=== PATIENT | male | born 1950 | race African-American/Black ===

== ENCOUNTER 2022-12-04 08:04 | Outpatient (AMB) | payer OTHER, SELFPAY ==
[2022-12-04 08:15] VITALS: BP 117/62; PULSE 73; BMI 30.1
--- NOTE | 2022-12-04 08:15 | MHC.OFFVIS ---
Intake Vital Signs 12/04/22 08:15 Height 5 ft 9 in Weight 204 lb 2.369 oz BMI 30.1 BP 117/62 Blood Pressure Location Rt brachial Position Sitting Pulse 73 Intake Visit Reasons: Colonoscopy Screening Intake Note: Patient present to in office visit today as a new patient for colonoscopy screening. CC: Patient reports occasional heartburn depending on what he eats. Denies other GI symptoms today. Allergies No Known Allergies Allergy (Verified 12/04/22 08:21) HPI Colonoscopy Screening HPI Details 72-year-old male here for preprocedural meeting to discuss screening colonoscopy. He is referred by Turner Freitas MD. PMX Asthma Hypertension High cholesterol Polyneuropathy (? not correct dsx) Erectile dysfunction Nephrolithiasis * SURGICAL HISTORY Circumcision Correction of phimosis Lithotripsy * ALLERGIES: NKDA * RSVP Law LABS: none TODAY'S VISIT He has had 3 prior colonoscopies and he has a hx of TA's, one was at [facility] and 2 out of [facility]. He denies any bowel or upper GI problems. There are no prior problems with anesthesia or sedation. His asthma is well controlled and he denies any cardiac problems. NO ID problems. He has a hx of TA's, 3 at first scope and 7 at second scope, but no known hx of CRC. [facility] Medical History History of phimosis of penis Nephrolithiasis Surgical History H/O colonoscopy H/O lithotripsy H/O circumcision Social History Alcohol intake: never Patient Tobacco Use Status: Former Tobacco user Quit Date: 1977 Use of substances other than those prescribed or required for medical reasons: No Review of Systems Const Denies fatigue, Denies fever(s), Denies night sweats, Denies poor appetite and Denies weight loss ENT Reports Normal hearing present, Denies dysphagia, Denies odynophagia, Denies throat swelling and Denies tongue swelling Card Reports no additional complaints Resp Reports no additional complaints GI Denies abdominal pain, Denies melena, Denies bloating, Denies hematochezia, Denies constipation, Denies GI cramping, Denies dysphagia, Denies excessive flatus, Denies early satiety, Denies heartburn, Denies diarrhea, Denies nausea, Denies odynophagia, Denies vomiting and Denies hematemesis Skin/Breast Denies pruritus, Denies lesions, Denies rash and Denies jaundice Neuro Reports Normal hearing present and Denies Abnormal speech present Endo Denies fatigue Aller/Immun Denies throat swelling and Denies tongue swelling Physical Exam Vital Signs: Last Vital Signs Pulse 73 12/04/22 08:15 BP 117/62 12/04/22 08:15 BMI result Body Mass Index 30.1 Const General: cooperative, no acute distress, well developed and well groomed Nutritional Appearance: well nourished and obese centrally obese Orientation/consciousness: oriented to person, oriented to place and oriented to time Limitations: No language barrier HEENT Head: Yes normocephalic and Yes atraumatic Eyes General: appearance normal, both eyes and all related structures Pupils: Equal, round and reactive pupils present Neck Neck: Yes normal visual inspection and Yes no lymphadenopathy Thyroid: Thyroid normal Resp Effort & Inspection: normal respiratory effort and able to speak in complete sentences Auscultation: clear to auscultation bilaterally and wheezes expiratory wheezes, inspiratory wheezes and throughout Cardio Rate: regular rate Rhythm: regular rhythm Heart sounds: Normal, physiologic split S2 sound present Peripheral pulses: radial pulses present and posterior tibial pulses present GI Inspection: No distended, No Abdominal panniculus present and Yes obesity Palpation (GI): Soft to palpation, nontender, no guarding, not rigid and No hepatosplenomegaly present Percussion: Yes normal to percussion Auscultation: normal bowel sounds Rectal Exam - Male: Yes deferred Skin General skin exam: no rashes or lesions noted, turgor normal, skin not dry, no jaundice, No spider nevi and no striae Rashes: no rashes Nails: normal Neuro General: oriented to person, oriented to place and oriented to time Cranial nerves: Yes Equal, round and reactive pupils present and Yes Normal hearing present Speech: No Abnormal speech present Extrem General: Yes normal to inspection, No clubbing, No cyanosis and No edema Psych Appearance: grossly normal and well kempt Mental Status: mental status grossly normal Speech and movement: Normal speech and movement present Affect: normal affect Attitude: cooperative Thought process: Normal thought process present and not confabulating Thought content: Normal thought content present Insight: Limited insight present (Psych) Judgement: Limited judgement present (Psych) Assessment & Plan Assessment & Plan (1) Pre-op examination: Code(s): Z01.818 - Encounter for other preprocedural examination Plan: He has had 3 prior colonoscopies and he has a hx of TA's, one was at [facility] and 2 out of [facility]. He denies any bowel or upper GI problems. There are no prior problems with anesthesia or sedation. His asthma is well controlled and he denies any cardiac problems. NO ID problems. He has a hx of TA's, 3 at first scope and 7 at second scope, but no known hx of CRC. (2) Tubular adenoma of colon: Code(s): D12.6 - Benign neoplasm of colon, unspecified (3) Asthma: Code(s): J45.909 - Unspecified asthma, uncomplicated Orders: Orders Colonoscopy - GI Use Only 12/04/22 Comprehensive Met. Panel 12/04/22 Z01.818 - Encounter for other preprocedural examination, D12.6 - Benign neoplasm of colon, unspecified Complete Blood Count Auto Diff 12/04/22 Z01.818 - Encounter for other preprocedural examination, D12.6 - Benign neoplasm of colon, unspecified Medications: New peg 3350-electrolytes 236-22.74-6.74 -5.86 gram (Golytely) until fecal effluent is clear; do not exceed a total volume of 2,000 mL 240 mL PO Q10M 4,000 mL 0RF 1 day Z12.11 - Encounter for screening for malignant neoplasm of colon bisacodyl (Dulcolax (bisacodyl)) 10 mg (2 x 5 mg) PO BEDTIME 4 tabs 0RF 2 days albuterol sulfate 0.63 mg (3 mL) inhalation QID PRN 90 mL 3RF shortness of breath or wheezing J45.909 - Unspecified asthma, uncomplicated Coding Level of Care Code New Pt Level 3 (80960) Diagnoses Pre-op examination Z.81 Tubular adenoma of colon D12.6 Asthma J45.903
== END 2022-12-04 09:36 | disposition home or self-care (01) ==
PROVIDERS: PCP Hospitalist; Visit Provider Nurse Practitioner
DX: Z01.818 Encounter for other preprocedural examination (principal); Z12.11 Encounter for screening for malignant neoplasm of colon; Z86.010 Personal history of colon polyps
CPT/HCPCS: 99203

== ENCOUNTER 2022-12-04 08:04 | Outpatient (REF) | payer OTHER, SELFPAY ==
[2022-12-04 09:20] LABS: MANUAL DIFF FLAG NO
[2022-12-04 10:15] LABS: Basophils Absolute Auto 0.1 X10*3/uL (0.0-0.2); Basophils Percent Auto 0.6 % (0-2); Eosinophils Absolute Auto 0.4 X10*3/uL (0.0-0.4); Eosinophils Percent Auto 4.1 % (0-4); Hematocrit 45.4 % (42.0-52.0); Hemoglobin 14.3 g/dl (14.0-18.0); Imm Gran Abs Auto 0.03 X10*3/uL (0.00-0.03); Imm Gran Pct Auto 0.3 % (0.0-0.4); Lymphocytes Absolute Auto 2.2 X10*3/uL (1.2-4.9); Lymphocytes Percent Auto 24.3 % (20-40); Mean Corpuscular HGB Conc 31.5 g/dl (31.0-36.0); Mean Corpuscular Hemoglobin 26.7 pg (27.0-33.0); Mean Corpuscular Volume 84.9 fL (80.0-98.0); Mean Platelet Volume 11.3 fL (9.4-12.4); Monocytes Absolute Auto 0.5 X10*3/uL (0.1-1.2); Monocytes Percent Auto 5.8 % (2-11); Neutrophils Absolute Auto 5.9 x10*3/uL (2.0-8.3); Neutrophils Percent Auto 64.9 % (45-73); Platelet Count 318 X10*3/uL (160-400); Red Blood Count 5.35 X10*6/uL (4.60-5.80); Red Cell Distribution Width 15.2 % (11.0-16.0); White Blood Count 9.1 X10*3/uL (4.8-10.8)
[2022-12-04 10:55] LABS: Alanine Aminotransferase 22 U/L (0-40); Albumin Level 4.2 g/dL (3.5-5.0); Alkaline Phosphatase 68 U/L (39-117); Anion Gap 12 (12-20); Aspartate Amino Transferase 19 U/L (5-37); Bilirubin Total 0.5 mg/dL (0.0-1.0); Blood Urea Nitrogen 15 mg/dL (9-16); Calcium 9.7 mg/dL (8.4-10.2); Carbon Dioxide 29 mmol/L (22-29); Chloride 105 mmol/L (96-108); Estimated Glomerular Filt Rate > 60; Glucose Random 107 mg/dL (60-115); Sodium 142 mmol/L (135-145); Total Protein 6.9 g/dL (6.5-8.0)
== END 2022-12-04 08:05 | disposition home or self-care (01) ==
LOC: HO.LAB 08:04
PROVIDERS: PCP Hospitalist; Visit Provider Nurse Practitioner
DX: Z01.818 Encounter for other preprocedural examination (principal); D12.6 Benign neoplasm of colon, unspecified; J45.909 Unspecified asthma, uncomplicated
CPT/HCPCS: 36415; 80053; 85025

== ENCOUNTER 2023-04-30 07:24 | Day surgery (SDC) | payer OTHER, SELFPAY ==
[2023-04-28 11:58] VITALS: BMI 30.1
--- NOTE | 2023-04-29 10:33 | P.CONAN_ITS ---
Documented by User: Francoise Mata NP 04/29/23 10:35 HPI - Anesthesia Eval Consult details Narrative: 72yo M for Colonoscopy [facility] Active Problems Active Problems: All Active Problems (Updated 12/04/22 @ 08:38 by JAMILA Krueger) Tubular adenoma of colon (Acute) Pre-op examination (Acute) Erectile dysfunction (Acute) Polyneuropathy (Acute) Impaired fasting glucose (Acute) High cholesterol (Acute) Hypertension (Acute) Asthma (Acute) Past Medical History Medical History History of phimosis of penis Nephrolithiasis Surgical History Surgical History H/O colonoscopy H/O lithotripsy H/O circumcision Social History Social History Alcohol intake: never Patient Tobacco Use Status: Former Tobacco user Quit Date: 1977 Advance Directives: No Advance Directives Information Provided: Yes Meds Allergies Allergy/AdvReac Type Severity Reaction Status Date / Time No Known Allergies Allergy Verified 12/04/22 08:21 Home Medications Medication Instructions Recorded Confirmed Last Taken Type albuterol sulfate 90 mcg/actuation 2 puff inhalation Q6H PRN 12/04/22 04/28/23 Unknown History aerosol inhaler Shortness Of Breath Or Wheezing amlodipine 10 mg tablet 10 mg PO DAILY 12/04/22 04/28/23 Unknown History atenolol 50 mg tablet 50 mg PO DAILY 12/04/22 04/28/23 Unknown History atorvastatin 20 mg tablet 20 mg PO QDAY 12/04/22 04/28/23 Unknown History gabapentin 300 mg capsule 300 mg PO DAILY 12/04/22 04/28/23 Unknown History losartan 50 mg tablet 75 mg PO DAILY 12/04/22 04/28/23 Unknown History sildenafil 100 mg tablet 100 mg PO DAILY PRN Erectile 12/04/22 04/28/23 Unknown History Dysfunction budesonide-formoterol HFA 160 2 puff inhalation BID 04/28/23 04/28/23 Unknown History mcg-4.5 mcg/actuation aerosol inhaler (Symbicort) Exam Height,Weight and Vital Signs: Height 5 ft 9 in Weight 92.533 kg Pertinent Lab Results Pertinent Lab Results: Laboratory Tests 12/04/22 09:16 WBC 9.1 Hgb 14.3 Hct 45.4 Plt Count 318 Sodium 142 Potassium 4.0 Chloride 105 Carbon Dioxide 29 BUN 15 Creatinine 1.06 Assessment and Plan Assessment Anesthesia Assessment: Chart Reviewed Documented by User: Audrey Kraft MD 04/30/23 09:09 [facility] Past Medical History Medical History History of phimosis of penis Nephrolithiasis Family History Family history of problems with anesthesia: No Surgical History Surgical History H/O colonoscopy H/O lithotripsy H/O circumcision History of Problems with Anesthesia: No Social History Social History Alcohol intake: never Patient Tobacco Use Status: Former Tobacco user Quit Date: 1977 Advance Directives: No Advance Directives Information Provided: Yes Meds Allergies Allergy/AdvReac Type Severity Reaction Status Date / Time No Known Allergies Allergy Verified 12/04/22 08:21 Home Medications Medication Instructions Recorded Confirmed Last Taken Type albuterol sulfate 90 mcg/actuation 2 puff inhalation Q6H PRN 12/04/22 04/28/23 Unknown History aerosol inhaler Shortness Of Breath Or Wheezing amlodipine 10 mg tablet 10 mg PO DAILY 12/04/22 04/28/23 Unknown History atenolol 50 mg tablet 50 mg PO DAILY 12/04/22 04/28/23 Unknown History atorvastatin 20 mg tablet 20 mg PO QDAY 12/04/22 04/28/23 Unknown History gabapentin 300 mg capsule 300 mg PO DAILY 12/04/22 04/28/23 Unknown History losartan 50 mg tablet 75 mg PO DAILY 12/04/22 04/28/23 Unknown History sildenafil 100 mg tablet 100 mg PO DAILY PRN Erectile 12/04/22 04/28/23 Unknown History Dysfunction budesonide-formoterol HFA 160 2 puff inhalation BID 04/28/23 04/28/23 Unknown History mcg-4.5 mcg/actuation aerosol inhaler (Symbicort) Exam Airway Mallampati Class: II (missing one tooth) TM Dist: >3cm Neck ROM: Full Heart: rrr Lungs: cta Assessment and Plan Assessment Anesthesia Assessment: Anesthesia Plan Discussed Final Anesthetic Review Family History of Problems with Anesthesia: No History of Problems with Anesthesia: No NPO: Yes ASA Class: III Final Preanesthetic Review: No Changes in Pt Med Stat, Meds/Allgs Chart Reviewed and Consent Obtained/Reviewed Patient Risk: Low Procedure Risk: Low Anesthetic Plan Anesthetic Plan: MAC: Disposition: Standard PACU
[2023-04-30] MEDS: Lactated Ringers 1,000 ML 100 ML IVCONT (08:59)
[2023-04-30 09:11] VITALS: BMI 30.3
[2023-04-30] MEDS: Albuterol Sulfate (0.083%) 2.5 MG/3 ML VIAL.NEB INHALE (09:12)
[2023-04-30 09:13] VITALS: PULSE 75; RESP 16
--- NOTE | 2023-04-30 09:14 | MHC.SHP ---
Pre-Procedural Eval Section A - 24 Hr Update-Section A only Date of Service: 04/30/23 Section B - Complete if H&P > 30 days Chief Complaint: Benign neoplasm of colon, unspecified Relevant Family History (Specify if Yes): No Relevant Social History: None Present Medications: see Short Stay Collaborative assessment Medical History: Significant History (History of phimosis of penis Nephrolithiasis) History of Previous Operations: Relevant previous surgery/procedure and date(s) (H/O colonoscopy H/O lithotripsy H/O circumcision) Allergies: Allergies Allergy/AdvReac Type Severity Reaction Status Date / Time No Known Allergies Allergy Verified 12/04/22 08:21 Review of Systems Sugical H&P ROS: Negative: Constitution, Cardiovascular, Respiratory, Neurological, Psychiatric, Hem-Onc, Allergic/Immunologic, Gastrointestinal, Genitourinary, Musculoskeletal, Integumentary, Endocrine and Eyes/Ears/Nose/Throat Exam Surgical H&P Exam: Normal: HEENT, Normal: Heart, Normal: Lungs, Normal: Extremities, Normal: Abdomen, Normal: Skin and Normal: Neurological Plan Diagnosis/Plan: Unchanged I have reviewed the history and physical and performed a pertinent physical examination on my patient. No changes have occurred unless specified. Time Spent With Patient Time: Total time managing care of this patient today ____ minutes.
[2023-04-30 09:19] VITALS: BP 154/81; PULSE 71; RESP 18; TEMP 36.1; O2SAT 97
--- NOTE | 2023-04-30 10:08 | W.PM.OPN ---
Operative Note Operative Note Date of Service: 04/30/23 Narrative: Operative Information Procedure Description: Colonoscopy Indication: screening Anesthesia: MAC COLONOSCOPY Instrument: Olympus variable stiffness pediatric scope 190L Colonoscopy Monitoring: Vital signs and clinical assessment, continuous EKG monitoring, Pulse oximetry, Carbon Dioxide monitoring and blood pressure monitoring were done throughout the procedure. Colon withdrawal time was 12 minutes. Procedure: The patient was placed in the left lateral decubitis position and pre-procedure medications were administered. After a digital rectal examination of the ano-rectum, the video colonoscope was inserted into the rectum and advanced through the colon to the cecum/TI. The colonoscope was slowly withdrawn in a retrograde panoramic fashion and the colon mucosa was carefully examined including a retroflexed view of the rectum. Findings and interventions are described below. Procedure Difficulty: easy Findings: Terminal Ileum-normal Cecum:normal Ascending Colon: normal Transverse Colon -normal Descending Colon:normal Sigmoid Colon: 4-6 mm sessile polyp removed with cold snare Rectum: Retroflexion with medium sized internal hemorrhoids, grade I, 6-9 mm sessile polyp removed with cold snare, with one clip applied for hemostasis Anorectum - normal Colon preparation: [place] Bowel Preparation Scale Right colon; 1-2 Transverse colon: 2 Left colon; 2 (0 = Unprepared colon segment with mucosa not seen due to solid stool that cannot be cleared. 1 = Portion of mucosa of the colon segment seen, but other areas of the colon segment not well seen due to staining, residual stool and/or opaque liquid. 2 = Minor amount of residual staining, small fragments of stool and/or opaque liquid, but mucosa of colon segment seen well. 3 = Entire mucosa of colon segment seen well with no residual staining, small fragments of stool or opaque liquid) Impression and Post Procedure Diagnosis: polyps internal hemorrhoids Plan: High fiber diet leaflet Avoid straining at stool, epsom salts and sitz bath, anusol supps or cream Repeat Colonoscopy in 5 years due to right sided fair prep or earlier if clinically indicated Above findings were reviewed with the patient and relevant handouts were provided if indicated.
[2023-04-30 10:12] VITALS: BP 98/52; PULSE 77; RESP 16; TEMP 36.1; O2SAT 99
[2023-04-30 10:27] VITALS: BP 105/52; PULSE 88; RESP 16; O2SAT 97
[2023-04-30 10:42] VITALS: BP 153/76; PULSE 76; RESP 16; O2SAT 97
[2023-04-30 10:57] VITALS: BP 129/63; PULSE 71; RESP 16; TEMP 36.2; O2SAT 97
== END 2023-04-30 11:32 | disposition home or self-care (01) ==
PROVIDERS: PCP Hospitalist; Visit Provider Internal Medicine Gastroenterology
PROC: 0DJD8ZZ Inspection of Lower Intestinal Tract, Via Natural or Artificial Opening Endoscopic (ICD-10-PCS; CPT 45378; principal; 2023-04-30 10:00)
DX: Z12.11 Encounter for screening for malignant neoplasm of colon (principal); K63.5 Polyp of colon; K62.1 Rectal polyp; K64.0 First degree hemorrhoids; Z86.010 Personal history of colon polyps; E78.00 Pure hypercholesterolemia, unspecified; J45.909 Unspecified asthma, uncomplicated; Z79.02 Long term (current) use of antithrombotics/antiplatelets; Z79.899 Other long term (current) drug therapy
CPT/HCPCS: 45385; 88305; 94640; J2704

== ENCOUNTER → 2023-04-30 07:24 | Outpatient (BNV) | payer OTHER, SELFPAY | PROVIDERS: PCP Hospitalist; Visit Provider Internal Medicine Gastroenterology | DX: Z12.11 Encounter for screening for malignant neoplasm of colon (principal); D12.5 Benign neoplasm of sigmoid colon; D12.8 Benign neoplasm of rectum; K64.8 Other hemorrhoids | CPT/HCPCS: 45385 ==

== ENCOUNTER 2023-05-14 09:30 | Outpatient (AMB) | payer OTHER, SELFPAY ==
[2023-05-14 09:39] VITALS: BP 133/73; PULSE 74; BMI 30.6
--- NOTE | 2023-05-14 09:39 | A.OFFVIS_ITS ---
Intake Vital Signs 05/14/23 09:39 Height 5 ft 9 in Weight 207 lb 3.752 oz BMI 30.6 BP 133/73 Blood Pressure Location Rt brachial Position Sitting Pulse 74 Intake Visit Reasons: s/p colon Intake Note: Patient returns in follow up s/p colonoscopy on 04/30/23 CC: Patient reports doing well and denies having any GI concerns today. Allergies No Known Allergies Allergy (Verified 05/14/23 09:54) HPI s/p colon HPI Details Assessment & Plan (1) Pre-op examination: Code(s): Z01.818 - Encounter for other preprocedural examination Plan: He has had 3 prior colonoscopies and he has a hx of TA's, one was at [facility] and [address] [place] He denies any bowel or upper GI problems. There are no prior problems with anesthesia or sedation. His asthma is well controlled and he denies any cardiac problems. NO ID problems. He has a hx of TA's, 3 at first scope and 7 at second scope, but no known hx of CRC. (2) Tubular adenoma of colon: Code(s): D12.6 - Benign neoplasm of colon, unspecified (3) Asthma: Code(s): J45.909 - Unspecified asthma, uncomplicated Orders: Orders Colonoscopy - GI U se Only 12/04/22 Comprehensive Met. Panel 12/04/22 Z01.818 - Encounte r for other prepro cedural examinatio n, D12.6 - Benign neoplasm of colon, unspecified Complete Blood Cou nt Auto Diff 12/04/22 Z01.818 - Encounte r for other prepro cedural examinatio n, D12.6 - Benign neoplasm of colon, unspecified Medications: New peg 3350-electroly mala 236-22.74-6.74 -5.86 gram (Golyt nico) until feca l effluent is denzel r; do not exceed a total volume of 2 ,000 mL 240 mL PO Q10M 4,0 00 mL 0RF 1 day Z12.11 - Encounter for screening for malignant neoplas m of colon bisacodyl (Dulcola x (bisacodyl)) 10 mg (2 x 5 mg) P O BEDTIME 4 tabs 0 RF 2 days albuterol sulfate 0.63 mg (3 mL) inh alation QID PRN 90 mL 3RF shortness of breath or wheez ing J45.909 - Unspecif ied asthma, uncomp licated LABS: Laboratory Tests 12/04/22 09:16 WBC 9.1 Hgb 14.3 Hct 45.4 Plt Count 318 Estimated GFR > 60 Total Bilirubin 0.5 AST 19 ALT 22 Alkaline Phosphata se 68 COLONOSCOPY 04/30/23 Findings: Terminal Ileum-normal Cecum:normal Ascending Colon: normal Transverse Colon -normal Descending Colon:normal Sigmoid Colon: 4-6 mm sessile polyp removed with cold snare Rectum: Retroflexion with medium sized internal hemorrhoids, grade I, 6-9 mm sessile polyp removed with cold snare, with one clip applied for hemostasis Anorectum - normal Impression and Post Procedure Diagnosis: polyps internal hemorrhoids Plan: High fiber diet leaflet Avoid straining at stool, epsom salts and sitz bath, anusol supps or cream Repeat Colonoscopy in 5 years due to right sided fair prep or earlier if clinically indicated BIOPSY Received: 04/30/23 Diagnosis A. Colon, sigmoid, polypectomy: Hyperplastic mucosal polyp. B. Rectum, polypectomy: Hyperplastic mucosal polyp TODAY'S VISIT He was worried about the clip. He was reassured that this will pass without him having to do anything or any complications. The procedure was well tolerated. The results were explained and the patient is agreeable to the follow-up interval as stated. The bowel pattern has returned to normal. Education was provided to tell any 1st degree relatives about their findings to be sure that they are screened by age 45. Educated that they will be put on a recall list when it is time for their repeat scope but should they move out of state or away from the hospital they will need to remember along with their primary to repeat the procedure in a timely fashion to avoid any adverse complications. ??? D/ instructions told him to f/u with his PCP in 1 week....why??? Post script On 05/14/23 @ 13:38 Ingrid Gold Wrote To Ingrid Gold (2) That's kind of what I thought as I did not see anything in his pre, intra or post op situation that was unusual. On 05/14/23 @ 10:48 Shweta Clark Wrote To Ingrid Gold not sure -may have been an error by the d/c unit, from my point of view he did not need to see his PCP that soon On 05/14/23 @ 10:25 Ingrid Gold Wrote To Shweta Clark This patient is colonoscopy discharge instructions said he needed to follow-up with his primary care provider in 1 week. He wants to know why? I could not find any reason on any of the paperwork or procedure notes. Please advise. [facility] Medical History History of phimosis of penis Nephrolithiasis Surgical History H/O colonoscopy H/O lithotripsy H/O circumcision Social History Alcohol intake: never Patient Tobacco Use Status: Former Tobacco user Quit Date: 40 years Review of Systems Const Denies fatigue, Denies fever(s), Denies night sweats, Denies poor appetite and Denies weight loss ENT Reports Normal hearing present, Denies dental pain, Denies dysphagia, Denies hearing loss, Denies mouth pain, Denies odynophagia, Denies throat swelling, Denies tongue swelling and Reports other (Dentition adequate) Card Reports no additional complaints Resp Reports no additional complaints GI Details: Denies abdominal pain, Denies melena, Denies bloating, Denies hematochezia, Denies constipation, Denies GI cramping, Denies dysphagia, Denies excessive flatus, Denies early satiety, Denies heartburn, Denies diarrhea, Denies nausea, Denies odynophagia, Denies vomiting and Denies hematemesis Skin/Breast Denies pruritus, Denies lesions, Denies rash and Denies jaundice Neuro Reports Normal hearing present and Denies Abnormal speech present Endo Denies fatigue Aller/Immun Denies throat swelling and Denies tongue swelling Physical Exam Vital Signs: Last Vital Signs Pulse 74 05/14/23 09:39 BP 133/73 05/14/23 09:39 BMI result Body Mass Index 30.6 Const General: cooperative, no acute distress, well developed and well groomed Nutritional Appearance: well nourished and obese Orientation/consciousness: oriented to person, oriented to place and oriented to time Limitations: No language barrier HEENT Head: Yes normocephalic and Yes atraumatic Eyes General: appearance normal, both eyes and all related structures Pupils: Equal, round and reactive pupils present Neck Neck: Yes normal visual inspection and Yes no lymphadenopathy Thyroid: Thyroid normal Resp Effort & Inspection: normal respiratory effort and able to speak in complete sentences Auscultation: clear to auscultation bilaterally Cardio Rate: regular rate Rhythm: regular rhythm Heart sounds: Normal, physiologic split S2 sound present Peripheral pulses: radial pulses present and posterior tibial pulses present GI Inspection: No distended, No Abdominal panniculus present and Yes obesity Palpation (GI): Soft to palpation, nontender, no guarding, not rigid and No hepatosplenomegaly present Percussion: Yes normal to percussion Auscultation: normal bowel sounds Rectal Exam - Male: Yes deferred Skin General skin exam: no rashes or lesions noted, turgor normal, skin not dry, no jaundice, No spider nevi and no striae Rashes: no rashes Nails: normal Neuro General: oriented to person, oriented to place and oriented to time Cranial nerves: Yes Equal, round and reactive pupils present and Yes Normal hearing present Speech: No Abnormal speech present Extrem General: Yes normal to inspection, No clubbing, No cyanosis and No edema Psych Appearance: grossly normal and well kempt Mental Status: mental status grossly normal Speech and movement: Normal speech and movement present Affect: normal affect Attitude: cooperative Thought process: Normal thought process present and not confabulating Thought content: Normal thought content present Insight: Limited insight present (Psych) Judgement: Limited judgement present (Psych) Assessment & Plan Assessment & Plan (1) Tubular adenoma of colon: Comment: 2023 scope equals hyperplastic polyps repeat in 5 years On pass scope, Code(s): D12.6 - Benign neoplasm of colon, unspecified Plan He was worried about the clip. He was reassured that this will pass without him having to do anything or any complications. The procedure was well tolerated. The results were explained and the patient is agreeable to the follow-up interval as stated. The bowel pattern has returned to normal. Education was provided to tell any 1st degree relatives about their findings to be sure that they are screened by age 45. Educated that they will be put on a recall list when it is time for their repeat scope but should they move out of state or away from the hospital they will need to remember along with their primary to repeat the procedure in a timely fashion to avoid any adverse complications. ??? D/ instructions told him to f/u with his PCP in 1 week....why??? Post script On 05/14/23 @ 13:38 Ingrid Gold Wrote To Ingrid Gold (2) That's kind of what I thought as I did not see anything in his pre, intra or post op situation that was unusual. On 05/14/23 @ 10:48 Shweta Clark Wrote To Ingrid Gold not sure -may have been an error by the d/c unit, from my point of view he did not need to see his PCP that soon On 05/14/23 @ 10:25 Ingrid Gold Wrote To Shweta Clark This patient is colonoscopy discharge instructions said he needed to follow-up with his primary care provider in 1 week. He wants to know why? I could not find any reason on any of the paperwork or procedure notes. Please advise. Coding Level of Care Code Est Pt Level 3 (96070) Diagnoses Tubular adenoma of colon D12.6
== END 2023-05-14 10:22 | disposition home or self-care (01) ==
PROVIDERS: PCP Hospitalist; Visit Provider Nurse Practitioner
DX: D12.6 Benign neoplasm of colon, unspecified (principal)
CPT/HCPCS: 99213

== ENCOUNTER → 2023-05-14 09:30 | Outpatient (BNVA) | payer OTHER, SELFPAY | PROVIDERS: PCP Hospitalist; Visit Provider Nurse Practitioner | DX: D12.6 Benign neoplasm of colon, unspecified (principal) | CPT/HCPCS: 99212 ==